=== PATIENT | female | born 1935 | race Caucasian/White ===

== ENCOUNTER 2016-09-11 11:13 | Emergency (ER) | payer MEDICARE | END 2016-09-11 12:25 | disposition home or self-care (01) | LOC: ER1 11:13 | DX: S46.012A Strain of muscle(s) and tendon(s) of the rotator cuff of left shoulder, initial encounter (principal); I10 Essential (primary) hypertension; E03.9 Hypothyroidism, unspecified; F17.210 Nicotine dependence, cigarettes, uncomplicated; M19.90 Unspecified osteoarthritis, unspecified site; X50.0XXA Overexertion from strenuous movement or load, initial encounter; Z90.710 Acquired absence of both cervix and uterus | CPT/HCPCS: 73030; 99283 ==

== ENCOUNTER → 2016-10-26 | Outpatient (CLI) | payer MEDICARE, BC | LOC: KOH-I 16:31 | DX: M25.552 Pain in left hip (principal); M25.511 Pain in right shoulder | CPT/HCPCS: 73030; 73502 ==

== ENCOUNTER → 2020-10-16 | Outpatient (CLI) | payer MEDICARE, BC ==
[~2020-10-16] MED LIST: ALDACTONE 25MG25 MG PO; AMOXICILLIN250 M1 PO; ASPIRIN EC81 MG PO; ATIVAN0.5 MG PO; CARDENE 30MG CA30 MG PO; CATAPRES 0.1MG0.1 MG PO; CATAPRES0.2 MG PO; CEFPODOXIME PR200 MG PO; COLACE 100MG C100 MG PO; COREG 25MG TAB25 MG PO; DESYREL 50 MG T50 MG PO; FEOSOL325 MG PO; FLONASE 0.05% N16 GM; FUROSEMIDE40 MG PO; HYDRALAZINE HCL50 MG PO; LASIX20 MG PO; LASIX40 MG PO; LEXAPRO10 MG PO; LISINOPRIL40 MG PO; MINOXIDIL10 MG PO; NIFEDIPINE ER60 M1 PO; NORCO 5-325 TA1 EACH PO; PANTOPRAZOLE SO40 MG PO; PLAQUENIL 200200 MG PO; PLAVIX 75 MG TA75 MG PO; SENNA LAX8.6 MG PO; SODIUM CHLORIDE1 G1 PO; SYNTHROID112 MCG PO; ZESTRIL40 MG PO
== END ==
LOC: KOH-I 09:52
DX: J32.9 Chronic sinusitis, unspecified (principal); R51.9 Headache, unspecified; J34.2 Deviated nasal septum; J34.89 Other specified disorders of nose and nasal sinuses
CPT/HCPCS: 70486

== ENCOUNTER → 2020-11-03 | Outpatient (CLI) | payer MEDICARE, BC | LOC: MRI 12:40 | DX: D37.05 Neoplasm of uncertain behavior of pharynx (principal) | CPT/HCPCS: 36415; 70543; 82565; 84520; A9577 ==

== ENCOUNTER 2021-10-09 16:47 | Emergency (ER) | payer MEDICARE ==
[2021-10-09 19:25] LABS: HEMOGLOBIN 14.6 gm/dl (12.3-15.3); RED BLOOD COUNT 4.78 M/UL (4.00-5.10); WHITE BLOOD COUNT 9.1 K/UL (4.5-11.0)
[2021-10-09 19:44] LABS: BUN/CREATININE RATIO 18 (0-10)
== END 2021-10-09 21:25 | disposition home or self-care (01) ==
LOC: ER1 16:47
PROVIDERS: Physician Assistant
DX: S80.812A Abrasion, left lower leg, initial encounter (principal); I10 Essential (primary) hypertension; X58.XXXA Exposure to other specified factors, initial encounter
CPT/HCPCS: 71045; 80053; 81001; 85025; 93005; 99284

== ENCOUNTER → 2021-10-10 | Outpatient (CLI) | payer MEDICARE | LOC: US 09:29 | DX: R22.42 Localized swelling, mass and lump, left lower limb (principal) | CPT/HCPCS: 93971 ==